=== PATIENT | male | born 1980 | race Caucasian/White ===

== ENCOUNTER 2017-04-24 11:28 | Emergency (ER) | payer SELFPAY ==
[~2017-04-24 11:28] MED LIST: Z.0.NO CURRENT MEDS
[2017-04-24 11:32] VITALS: BP 122/68; PULSE 54; RESP 15; TEMP 98.5; O2SAT 95
--- NOTE | 2017-04-24 11:40 | PD ---
HPI Chief Complaint: Complaint Time Seen by Provider: 11:37 Travel History International Travel<30 days: No Contact w/Intl Traveler<30days: No Traveled to known affect area: No History of Present Illness HPI 36 year old male presents to the ED to be evaluated and treated for chlamydia. Had it 2 months ago and says he started having symptoms yesterday of the same. Denies fever or chills No abdominal pain. No other symptoms to report. History Past Medical Histgory Medical History: Denies Significant Hx Social History Alcohol Use: Yes (2-3 BEERS EVRY OTHER DAY) Tobacco Use: Yes (1 PPD X 10 YRS) Allergies-Medications (Allergen,Severity, Reaction): Coded Allergies: No Known Allergies (Verified Allergy, Mild, 01/17/07) Reported Meds & Prescriptions Reported Meds & Active Scripts Active Reported No Current Meds (Miscellaneous Medication) Misc Review of Systems Except as stated in HPI: all other systems reviewed are Neg Physical Exam Narrative GENERAL: Well nourished male pt in no acute distress SKIN: Warm and dry. HEAD: Normocephalic. EYES: No scleral icterus. No injection or drainage. NECK: Supple, trachea midline. No JVD or lymphadenopathy. CARDIOVASCULAR: Regular rate and rhythm without murmurs, gallops, or rubs. RESPIRATORY: Breath sounds equal bilaterally. No accessory muscle use. GASTROINTESTINAL: Abdomen soft, non-tender, nondistended. MUSCULOSKELETAL: No cyanosis, or edema. BACK: Nontender without obvious deformity. No CVA tenderness. Data Data Last Documented VS Vital Signs Date Time Temp Pulse Resp B/P (MAP) Pulse Ox O2 Delivery O2 Flow Rate FiO2 04/24/17 11:32 98.5 54 15 122/68 (86) 95 MDM Medical Screen Exam Complete: Yes Emergency Medical Condition: No Differential Diagnosis STD check Narrative Course 36 year old male presents to ED for evaluation and treatment of STDs. Appears well. Symptoms started yesterday. There are no urgent or emergent needs for medical intervention and pt is referred and provided information on [facility] and proper follow up . A medical screening exam was performed: At the time of evaluation the presenting medical condition was determined not to be of an emergent nature. The patient was given the option of receiving additional care, but declined. Patient was given options for additional community resources from which to obtain care. The Patient Has Been advised to seek medical attention for their presenting complaint. The patient has been advised to return to the ER at any time if an emergent condition develops. Primary Impression: Encounter for medical screening examination Condition: Stable Cyndee Richardson Apr 24, 2017 11:40
== END 2017-04-24 11:43 | disposition left against medical advice (07) ==
LOC: NED 11:28
DX: Z11.8 Encounter for screening for other infectious and parasitic diseases (principal); F17.200 Nicotine dependence, unspecified, uncomplicated
CPT/HCPCS: 99281

== ENCOUNTER 2017-05-02 09:19 | Emergency (ER) | payer SELFPAY ==
[~2017-05-02] VITALS: Ht 177.8 cm; Wt 76.1 kg
[2017-05-02 09:24] VITALS: BP 114/65; PULSE 64; RESP 16; TEMP 98.5; O2SAT 100
--- NOTE | 2017-05-02 09:44 | PD ---
HPI Chief Complaint: Complaint Time Seen by Provider: 09:31 Travel History International Travel<30 days: No Contact w/Intl Traveler<30days: No Traveled to known affect area: No History of Present Illness HPI Patient is a 36-year-old male who presents to emergency room for evaluation and treatment of gonorrhea. Patient reports that his girlfriend was recently diagnosed with gonorrhea, reports that he has noticed some penile discharge. Patient denies history of STDs in the past. Patient denies any fevers or chills , denies any abdominal pain, patient with no other complaints at this time. Patient reports that he has been symptomatic for the past week. PFSH Past Medical History Medical History: Denies Significant Hx Past Surgical History Surgical History: No Previous Surgery Social History Alcohol Use: Yes (2-3 BEERS EVRY OTHER DAY) Tobacco Use: Yes (1 PPD X 10 YRS) Substance Use: No Allergies-Medications (Allergen,Severity, Reaction): Coded Allergies: No Known Allergies (Verified , 05/02/17) Reported Meds & Prescriptions Reported Meds & Active Scripts Active No Active Prescriptions or Reported Medications Review of Systems General / Constitutional: No: Fever Eyes: No: Visual changes HENT: No: Headaches Cardiovascular: No: Chest Pain or Discomfort Respiratory: No: Shortness of Breath Gastrointestinal: No: Abdominal Pain Genitourinary: Positive: Other (penal discharge), No: Dysuria Musculoskeletal: No: Pain Skin: No Rash Neurologic: No: Weakness Psychiatric: No: Depression Endocrine: No: Polydipsia Hematologic/Lymphatic: No: Easy Bruising Physical Exam Narrative GENERAL: Well-nourished, well-developed patient. SKIN: Focused skin assessment warm/dry. HEAD: Normocephalic. EYES: No scleral icterus. No injection or drainage. NECK: Supple, trachea midline. No JVD or lymphadenopathy. CARDIOVASCULAR: Regular rate and rhythm without murmurs, gallops, or rubs. RESPIRATORY: Breath sounds equal bilaterally. No accessory muscle use. GASTROINTESTINAL: Abdomen soft, non-tender, nondistended. MUSCULOSKELETAL: No cyanosis, or edema. BACK: Nontender without obvious deformity. No CVA tenderness. Data Data Last Documented VS Vital Signs Date Time Temp Pulse Resp B/P (MAP) Pulse Ox O2 Delivery O2 Flow Rate FiO2 05/02/17 09:24 98.5 64 16 114/65 (81) 100 Orders Orders Gc And Chlamydia Pcr (05/02/17 09:32) MDM Medical Decision Making Medical Screen Exam Complete: Yes Emergency Medical Condition: Yes Medical Record Reviewed: Yes Interpretation(s) Vital Signs Date Time Temp Pulse Resp B/P (MAP) Pulse Ox O2 Delivery O2 Flow Rate FiO2 05/02/17 09:24 98.5 64 16 114/65 (81) 100 Differential Diagnosis Differential includes urethritis Narrative Course Patient presents to emergency room for treatment of possible gonorrhea as he has had unprotected sexual intercourse with his girlfriend who was recently diagnosed with a STD. Patient with no allergies to medications. Plan to treat for urethritis. Patient will follow up with his primary care doctor and will return to emergency room as needed. Diagnosis Primary Impression: Urethritis Patient Instructions: General Instructions Additional Instructions: Please follow-up with all cultures from today Please follow-up with your primary care doctor Return to the emergency room as needed Scripts No Active Prescriptions or Reported Meds Disposition: 01 DISCHARGE HOME Condition: Stable Selene Merritt DO May 02, 2017 09:44
[2017-05-02] MEDS ORDERED: AZITHROMYCIN PWD FOR SUSP 1 GM PACKET PO ONE (09:45)
[2017-05-02] MEDS ORDERED: LIDOCAINE HCL 1% 50 ML VIAL IM ONE (09:45)
[2017-05-02] MEDS ORDERED: cefTRIAXone 250 MG VIAL IM ONE (09:45)
[2017-05-02 12:18] LABS: CHLAMYDIA PCR NOT DETECTED (NOT DETECT); NEISSERIA PCR DETECTED (NOT DETECT)
== END 2017-05-02 10:31 | disposition home or self-care (01) ==
LOC: PHEFT 09:19
DX: N34.2 Other urethritis (principal); F17.200 Nicotine dependence, unspecified, uncomplicated
CPT/HCPCS: 87491; 87591; 96372; 99284; J0696